=== PATIENT | female | born 1955 | race Caucasian/White ===

== ENCOUNTER 2023-07-18 22:46 | Emergency (ER) | payer OTHER, SELFPAY ==
[2023-07-18 22:46] VITALS: BP 141/96; PULSE 87; RESP 16; TEMP 36.4; O2SAT 100
--- NOTE | 2023-07-18 23:14 | EDS_ITS ---
HPI History of Present Illness Chief Complaint: Chest Pain Informant: patient Onset/Context/Timing Onset: Today Activity at onset: gradual Timing: Continuous and Waxes and wanes Quality: Positive for Heaviness Location: Substernal Worsened By: Nothing Relieved By: Nothing Associated Symptoms: Positive for Lightheadedness and Palpitations; Negative for Nausea, Vomiting, Diaphoresis, Dyspnea, Cough, Fever or Acid Reflux Narrative Narrative: Patient presents with chest pain that began today. Patient states that it has been constant throughout the day. Patient describes it as a heaviness. Patient states that when she is active and doing things she does not notice it as much. Patient states nothing makes it worse. Patient admits to some lightheadedness. Patient states she feels like her heart races at times. Patient denies any fevers or chills. Patient denies any nausea or vomiting. Patient denies any shortness of breath or cough. CVD Risk Factors: Positive for Hypercholesterolemia; Negative for Hypertension, Diabetes, Family History 1' </=55 or Smoking PE Risk Factors: Negative for Recent Travel/Surgery, Recent Immobilization, Prior DVT or PE or Cancer [facility] Medical History (Updated 07/19/23 @ 00:[address] Parrish Vazquez, ) Hypercholesteremia Kidney stones Home Medications multivitamin with folic acid 400 mcg tablet (Thera) 1 tab PO DAILY 01/26/15 [History Last Taken Unknown] salmon oil 1,000 mg-omega-3 fatty acids 210 mg capsule 1 ea PO DAILY 01/26/15 [History Last Taken Unknown] vitamin B complex 1 ea PO DAILY 01/26/15 [History Last Taken Unknown] vitamin E 670 mg (1,000 unit) capsule 1,000 unit PO DAILY 01/26/15 [History Last Taken Unknown] ciprofloxacin HCl 500 mg tablet 500 mg PO BID ##14 01/30/15 [Rx Last Taken Unknown] docusate sodium 100 mg capsule (DOK) 200 mg (2 x 100 mg) PO BID ##20 01/30/15 [Rx Last Taken Unknown] oxycodone-acetaminophen 5 mg-325 mg tablet 1 - 2 tab PO Q4H PRN PRN Pain #20 tabs 01/30/15 [Rx Last Taken Unknown] Allergy/AdvReac Type Severity Reaction Status Date / Time No Known Allergies Allergy Verified 01/07/15 17:56 Surgical History (Updated 07/18/23 @ 23:[address] Parrish Vazquez DO) History of ear surgery Hx of cholecystectomy Status post de Quervain's release surgery Social History Smoking Status: Never smoker ROS ROS ED Constitutional Constitutional ED: Denies chills or fever(s) Eyes Eyes: Denies blurry vision or change in vision ENT ENT ED: Denies rhinorrhea or sore throat Cardiovascular Cardiovascular: Reports chest pain and palpitations Respiratory/Chest Respiratory/Chest: Denies cough or dyspnea Gastrointestinal Gastrointestinal: Denies nausea or vomiting Genitourinary Genitourinary ED: Reports urinary frequency; Denies dysuria or hematuria Musculoskeletal Musculoskeletal: Denies back pain or neck pain Integumentary Denies abscess or rash Neurologic Neurologic: Denies headache(s) or weakness Allergic/Immunologic Allergic/Immunologic ED: Denies mouth swelling or urticaria EXAM Physical Exam Const Vital Signs: 07/18/23 22:46 07/18/23 22:53 07/18/23 23:31 Temperature 97.6 F L Temperature Source Temporal Pulse Rate 87 Respiratory Rate 16 Respiratory Effort Short of Breath Blood Pressure 141/96 H Blood Pressure Mean 111 Pulse Ox 100 Oxygen Delivery Method Room Air Room Air 07/18/23 23:46 Temperature Temperature Source Pulse Rate 77 Respiratory Rate 24 H Respiratory Effort Blood Pressure 114/69 Blood Pressure Mean 84 Pulse Ox 98 Oxygen Delivery Method Room Air Positive well nourished and well developed General Appearance ED: well developed and NAD HEENT Reports moist mucous membranes Neck supple and no JVD Resp normal respiratory effort and clear to auscultation bilaterally Cardio regular rate and regular rhythm Rhythm: abnormal rhythm ectopic beats GI soft to palpation, non-tender and non-distended Extremity normal to inspection General Extremety ED: Negative for edema or tenderness General Extremity: Negative for edema Neuro oriented x3, CN's II-XII intact bilaterally and no sensory deficits noted Sensorium / Orientation: awake and alert Motor Exam: strength 5/5 throughout Psych mental status grossly normal Heart Score History: Slightly/Non-Suspicious ECG: Nonspecific Repolarization Age: >/= 65 years Risk Factors: 1 or 2 Risk Factors Score: 4 MDM MDM MDM Narrative Medical decision making narrative: Differential diagnosis includes cardiac dysrhythmia, cardiac ischemia, electrolyte abnormality, dehydration, pneumonia, pneumothorax, and anxiety. Sony westbrook has a Wells score of 0. I do not feel this is from a pulmonary embolism. EKG will be obtained to assess for cardiac dysrhythmia and cardiac ischemia. Chest x-ray will be obtained to assess for pneumonia and pneumothorax. CBC will be obtained to assess for leukocytosis and anemia. Basic metabolic profile will be obtained to assess for electrolyte abnormality and renal function. High-se nsitivity troponin will be obtained to assess for cardiac ischemia. Lab Data Attestation: I reviewed the patient's lab results. Lab results narrative: CBC was reviewed and was within normal limits. Basic metabolic profile was reviewed. Potassium was slightly low at 3.1. Chloride was slightly elevated at 111. Magnesium level was reviewed and was normal at 2.4. High-sensitivity troponin was reviewed and was normal at 7. Labs: Laboratory Results - last 24 hr 07/18/23 22:56 WBC 5.1 RBC 4.86 Hgb 12.3 Hct 39.1 MCV 80.5 L MCH 25.3 L MCHC 31.5 L RDW Std Deviation 48.8 H RDW Coeff of Lori 16.9 H Plt Count 306 MPV 10.8 Immature Gran % (Auto) 0.200 Neut % (Auto) 42.9 L Lymph % (Auto) 45.1 H [place] % (Auto) 8.6 Eos % (Auto) 2.4 Baso % (Auto) 0.8 Absolute Neuts (auto) 2.2 Absolute Lymphs (auto) 2.30 Nucleated RBC % 0 Sodium 142 Potassium 3.1 L Chloride 111 H Carbon Dioxide 27.0 Anion Gap 4 L BUN 18 Creatinine 0.83 Est GFR (MDRD) Af Amer 88 Est GFR (MDRD) Non-Af 72 BUN/Creatinine Ratio 21.7 H Glucose 104 Calcium 9.0 Magnesium 2.4 Troponin I High Sens 7 Radiography Diagnostic Testing: Clinical Impression(s) from Imaging Studies Chest X-Ray 07/18/23 23:40 IMPRESSION: Hyperexpanded lungs compatible with chronic obstructive pulmonary disease. No radiographic evidence of consolidative airspace disease. Electronically Signed: Rafat Treviño MD at 0:21 EST , Portable 1 view chest x-ray was obtained. On my independent interpretation, lung portillo are hyperexpanded but clear. There is normal cardiac silhouette. Bony thorax is normal. There is no acute process noted. Radiologist also interpreted the x-ray and agrees. EKG Initial EKG: Attestation: I personally reviewed and interpreted this EKG as follows: Interpretation: Sinus Tachycardia (103), RBBB (Incomplete) and Non- Specific ST Changes Comments: EKG was obtained. On my independent interpretation, shows sinus tachycardia with a rate of 103. UT interval was normal at 142 ms. QRS interval was normal at 94 ms. QTc interval was normal at 474 ms. [place] was normal at -1. There is an incomplete right bundle branch block pattern noted. There are nonspecific ST-T wave changes noted. There are no prior EKGs available for comparison. Prior EKG tracings: not available for review Prior: No Prior Treatment and Re-Evaluation :: While here in the emergency department, patient did have brief runs of tachycardia that only lasted for 1 to 2 seconds. This could be related to the hypokalemia. Patient was advised of her findings. Patient was instructed to follow-up with her primary care physician in 5 to 7 days. Patient was instructed to return if worse in any way. Patient understood and was agreeable with the plan. All questions were answered. Discharge Plan Triage Chief Complaint: Chest Pain ED Provider: Parrish Vazquez Dx/Rx/DC Orders Clinical Impression: Heart palpitations, Hypokalemia Instructions: ED Hypokalemia, ED Palpitations Prescriptions: No Action vitamin E 1,000 UNIT capsule 1,000 unit PO DAILY Patient Comments: vitamin vitamin B complex 1 EACH capsule 1 ea PO DAILY Patient Comments: vitamin multivitamin with folic acid [Thera] 1 TABLET tablet 1 tab PO DAILY Patient Comments: vitamin salmon oil-omega-3 fatty acids 1 EACH capsule 1 ea PO DAILY Patient Comments: supplement ciprofloxacin HCl 500 MG tablet 500 mg PO BID Qty: 14 0RF Patient Comments: antibiotic oxycodone-acetaminophen 1 TABLET tablet 1 - 2 tab PO Q4H PRN PRN (Reason: Pain) Qty: 20 0RF Patient Comments: pain medication docusate sodium [DOK] 100 MG capsule 200 mg PO BID Qty: 20 0RF Patient Comments: constipation Primary Care Provider: Davon Walter Referrals: Jose Angel,Davon, DO [Primary Care Provider] - 5-7 Days Disposition Disposition: Home, Self Care
--- NOTE | 2023-07-18 23:31 | EKG12_ITS ---
Test Reason : CP Blood Pressure : / mmHG Vent. Rate : 103 BPM Atrial Rate : 174 BPM P-R Int : 142 ms QRS Dur : 094 ms QT Int : 362 ms P-R-T Axes : 073 -01 062 degrees QTc Int : 474 ms Sinus tachycardia Incomplete right bundle branch block ST & T wave abnormality, consider anterior ischemia Abnormal ECG Confirmed by BALJINDER OLMSTEAD, JOSE ANTONIO ([id number]), editor continuity and script SHARON SHIN ([id number]) on 07/25/2023 8:21:59 AM Referred By: STAN Confirmed By:JOSE ANTONIO GALE MD
[2023-07-18 23:40] LABS: Absolute Neutrophil Count 2.2 X10^3/uL (2.0-7.7); Basophil# 0.04 X10^3/uL; Basophil% 0.8 % (0-1); Eosinophil# 0.12 X10^3/uL; Eosinophils% 2.4 % (0-5); Hematocrit 39.1 % (37-47); Hemoglobin 12.3 g/dL (12.0-15.0); Lymphocyte % 45.1 % (19-41); Mean Corp Hgb Conc 31.5 g/dL (32-36); Mean Corpuscular Hgb 25.3 pg (27.0-32.0); Mean Corpuscular Volume 80.5 fL (81-99); Mean Platelet Vol. 10.8 fl (6.2-12.0); Monocyte# 0.44 X10^3/uL; Monocyte% 8.6 % (0-10); NRBC Flagged by Analyzer 0 % (0-5); Neutrophil # 2.19 X10^3/uL (2.7-7.7); Neutrophil % 42.9 % (47-70); Platelet Count 306 K/mm3 (150-450); RBC Distribution Width CV 16.9 % (11.6-14.6); RBC Distribution Width SD 48.8 fl (35.1-43.9); Red Blood Count 4.86 M/mm3 (4.2-5.4); White Blood Count 5.1 K/mm3 (4.4-11.0)
--- NOTE | 2023-07-18 23:40 | RAD_ITS ---
INDICATION: chest pain EXAMINATION/TECHNIQUE: X-RAY - XR Chest 1 View COMPARISON: None. FINDINGS: LINES/DEVICES: None. LUNGS: Lungs symmetrically hyperexpanded with mildly coarsened interstitium. No consolidation, edema or effusion. No pneumothorax. MEDIASTINUM AND CARDIOVASCULAR STRUCTURES: Cardiac silhouette not enlarged. Aortic atherosclerosis BONES AND SOFT TISSUES: Unremarkable. Mild lateral curvature of the thoracolumbar spine. Right upper quadrant surgical clips. RAD/Chest 1 View (Portable) IMPRESSION: Hyperexpanded lungs compatible with chronic obstructive pulmonary disease. No radiographic evidence of consolidative airspace disease. Electronically Signed: Rafat Treviño MD at 0:21 EST ,
[2023-07-18 23:46] VITALS: BP 114/69; PULSE 77; RESP 24; O2SAT 98
[2023-07-18] MEDS: Aspirin 81 MG TAB.CHEW 324 MG PO (23:52)
[2023-07-18 23:58] LABS: Anion Gap 4 (5-15); BUN 18 mg/dL (7-18); BUN/Creat Ratio 21.7 RATIO (10-20); Chloride 111 mmol/L (98-107); Creatinine, Serum 0.83 mg/dL (0.55-1.02); EST Glomerular Filtration Rate 72 mL/min (>60); Est Glom Filt Rate - Afr Amer 88 mL/min (>60); Glucose 104 mg/dL (74-106); Magnesium 2.4 mg/dL (1.6-2.6); Potassium 3.1 mmol/L (3.5-5.1); Sodium Level 142 mmol/L (136-145); Troponin-I HS 7 pg/mL (3.0-54.0)
[2023-07-19] VITALS: BP 115/71; PULSE 77; RESP 18; O2SAT 98
[2023-07-19 00:18] VITALS: BP 106/71; PULSE 76; RESP 20
[2023-07-19] MEDS: Potassium Chloride Oral Tablet 20 MEQ 40 MEQ PO (00:33)
== END 2023-07-19 00:50 | disposition home or self-care (01) ==
PROVIDERS: Emergency Provider Emergency Medicine; PCP Family Medicine; Visit Provider Emergency Medicine
DX: R00.2 Palpitations (principal); E87.6 Hypokalemia
CPT/HCPCS: 71045; 80048; 83735; 84484; 85025; 93005; 99284; A4216